=== PATIENT | female | born 2000 | race Caucasian/White ===

== ENCOUNTER 2022-02-25 22:47 | Emergency (ER) | payer OTHER ==
[2022-02-25 23:09] VITALS: BP 128/79; PULSE 98; TEMP 98.4; BMI 32.7
[2022-02-25] MEDS ORDERED: predniSONE 20 MG TABLET (UD) PO ONE (23:42)
[2022-02-25] MEDS ORDERED: diphenhydrAMINE HCL 25 MG CAPSULE (FP) PO ONE (23:42)
[2022-02-26] MEDS ORDERED: diphenhydrAMINE HCL 25 MG CAPSULE (FP) PO ONE (00:16)
[2022-02-26] MEDS ORDERED: predniSONE 20 MG TABLET (UD) ONE (00:16)
== END 2022-02-26 00:45 | disposition home or self-care (01) ==
LOC: JER 22:47
DX: L25.5 Unspecified contact dermatitis due to plants, except food (principal)
CPT/HCPCS: 99283-25

== ENCOUNTER 2023-01-02 11:41 | Emergency (ER) | payer OTHER ==
[2023-01-02 11:46] VITALS: BP 130/63; PULSE 73; RESP 18; TEMP 97.3; BMI 28.8
[2023-01-02] MEDS ORDERED: ONDANSETRON 4 MG/2 ML VIAL IVPUSH ONE (12:16)
[2023-01-02] MEDS ORDERED: FAMOTIDINE 20 MG/50 ML IVPB 20 MG/50 ML MG IVPB ONE ×2 (12:16→12:18)
[2023-01-02] MEDS ORDERED: LACTATED RINGERS SOLUTION 1000 ML INFUS.BAG IV ONE (12:16)
[2023-01-02] MEDS ORDERED: ONDANSETRON 4 MG/2 ML VIAL ONE (12:18)
[2023-01-02 12:32] LABS: BASO % 0.3 % (0-2.0); EOS % 0.1 % (0-4.5); HEMATOCRIT 38.8 % (32.4-45.2); HEMOGLOBIN 13.2 GM/dL (10.7-15.3); LYMPH % 13.8 % (8-40); MCH 28.7 pg (25.7-33.7); MCHC 34.1 g/dl (32.0-36.0); MEAN CELL VOLUME 84.3 fl (80-96); MEAN PLT VOLUME 8.6 fl (7.5-11.1); MONO % 4.1 % (3.8-10.2); NEUT % 81.7 % (42.8-82.8); PLATELET COUNT 287 10^3/uL (134-434); RDW 12.6 % (11.6-15.6); WHITE BLOOD COUNT 12.9 K/mm3 (4.0-10.0)
[2023-01-02 12:33] LABS: HCG,QUALITATIVE URINE Positive
[2023-01-02 12:37] LABS: EPI CELLS >36 /uL (0-25.1); HYALINE CASTS 2 /uL (0-3.1); PH,URINE 5.5 (5.0-8.0); URINE APPEARANCE CLOUDY; URINE BACTERIA 388 /uL (0-1359); URINE BILIRUBIN NEGATIVE (NEGATIVE); URINE COLOR YELLOW; URINE GLUCOSE (UA) NEGATIVE (NEGATIVE); URINE KETONE 4+ (NEGATIVE); URINE LEUK ESTERASE NEGATIVE (NEGATIVE); URINE NITRITE NEGATIVE (NEGATIVE); URINE PROTEIN 1+ (NEGATIVE); URINE RBC 20 /uL (0-23.9); URINE UROBILINOGEN 0.2 mg/dL (0.2-1.0); URINE WBC 55 /uL (0-25.8)
[2023-01-02 12:57] LABS: CALCIUM 9.3 mg/dL (8.5-10.1)
[2023-01-02 13:01] LABS: CREATININE 0.7 mg/dL (0.55-1.3)
[2023-01-02 13:03] LABS: BILIRUBIN,TOTAL 0.4 mg/dL (0.2-1); TOT PROT 7.9 g/dl (6.4-8.2)
== END 2023-01-02 14:12 | disposition home or self-care (01) ==
LOC: JER 11:41 → JERFT 11:41
PROC: 3E033GC Introduction of Other Therapeutic Substance into Peripheral Vein, Percutaneous Approach (ICD-10-PCS; principal; 2023-01-02)
PROC: 3E033GC Introduction of Other Therapeutic Substance into Peripheral Vein, Percutaneous Approach (ICD-10-PCS; 2023-01-02)
DX: O21.9 Vomiting of pregnancy, unspecified (principal); Z3A.01 Less than 8 weeks gestation of pregnancy
CPT/HCPCS: 36415; 76817-TC; 80053; 81003; 84702; 84703; 85025; 86850; 86900; 86901; 87086; 99284-25

== ENCOUNTER 2023-08-21 06:58 | Inpatient (IN) | payer OTHER ==
[2023-08-21 08:41] VITALS: BMI 38.5
[2023-08-21 09:16] LABS: INR 1.01 (0.83-1.09); PROTHROMBIN TIME (PATIENT) 11.7 SEC (9.7-13.0)
[2023-08-21 09:19] LABS: ACTIVATED PTT 23.9 SECONDS (25.2-36.5)
[2023-08-21 09:21] LABS: BASO % 0.3 % (0-2.0); EOS % 0.8 % (0-4.5); HEMATOCRIT 30.7 % (32.4-45.2); HEMOGLOBIN 10.1 GM/dL (10.7-15.3); LYMPH % 17.2 % (8-40); MCHC 32.7 g/dl (32.0-36.0); MEAN CELL VOLUME 82.6 fl (80-96); MEAN PLT VOLUME 7.8 fl (7.5-11.1); MONO % 8.3 % (3.8-10.2); NEUT % 73.4 % (42.8-82.8); PLATELET COUNT 263 10^3/uL (134-434); RBC 3.72 M/mm3 (3.60-5.2); RDW 14.5 % (11.6-15.6); WHITE BLOOD COUNT 12.5 K/mm3 (4.0-10.0)
[2023-08-21 09:52] LABS: POTASSIUM 3.8 mmol/L (3.5-5.1)
[2023-08-21 09:53] LABS: BLOOD UREA NITROGEN 8.8 mg/dL (7-18); CALCIUM 8.7 mg/dL (8.5-10.1)
[2023-08-21 09:57] LABS: CREATININE 0.4 mg/dL (0.55-1.3)
[2023-08-21] MEDS: ELECTROLYTE-148 SOLN 1,000 ML IV SCH ×2 (10:30→15:47)
[2023-08-21] MEDS ORDERED: DINOPROSTONE 10 MG VAGINAL SUPPOSITORY VG ONE (11:00)
[2023-08-21] MEDS ORDERED: PROMETHAZINE HCL 25 MG/1 ML VIAL IM ONE (11:10)
[2023-08-21] MEDS ORDERED: BUTORPHANOL TARTRATE 1 MG/ML VIAL IVPB ONE (11:10)
[2023-08-21] MEDS ORDERED: AMPICILLIN - 2 GM in SODIUM CHLORIDE 100 ML IVPB ONE ×2 (11:15→20:45)
[2023-08-21] MEDS: AMPICILLIN - 1 GM in SODIUM CHLORIDE 100 ML IVPB SCH (15:48)
[2023-08-21] MEDS ORDERED: AMPICILLIN SODIUM 2 GM VIAL ONE (20:21)
[2023-08-21] MEDS ORDERED: FENTANYL/BUPIVACAINE/NS/PF - PCEA - 50 ML DISP.SYRIN EP ONE (23:43)
[2023-08-22] MEDS: ELECTROLYTE-148 SOLN 1,000 ML IV SCH ×2 (00:15→04:30)
[2023-08-22] MEDS ORDERED: NALOXONE HCL 0.4 MG/ML VIAL IVPUSH PRN (00:23)
[2023-08-22] MEDS ORDERED: FENTANYL CITRATE/PF 50 MCG/ML VIAL ONE ×2 (00:31→18:15)
[2023-08-22] MEDS ORDERED: BUPIVACAINE HCL/PF 0.25% (2.5MG/ML) 10 ML VIAL ONE ×2 (00:31→18:15)
[2023-08-22] MEDS: FENTANYL/BUPIVACAINE/NS/PF - PCEA - 50 ML DISP.SYRIN EP SCH (00:50)
[2023-08-22] MEDS: AMPICILLIN - 1 GM in SODIUM CHLORIDE 100 ML IVPB SCH ×5 (01:00→17:30)
[2023-08-22] MEDS ORDERED: AMPICILLIN SODIUM 1 GM VIAL ONE ×5 (01:02→17:31)
[2023-08-22] MEDS ORDERED: OXYTOCIN 30 UNITS in 0.9% NS 30 UNIT/500 ML INFUS.BAG IVPB ONE (04:15)
[2023-08-22] MEDS: OXYTOCIN 30 UNITS in 0.9% NS 30 UNIT/500 ML INFUS.BAG IVPB SCH (04:20)
[2023-08-22] MEDS ORDERED: FENTANYL/BUPIVACAINE/NS/PF - PCEA - 50 ML DISP.SYRIN EP ONE ×4 (05:32→19:07)
[2023-08-22] MEDS ORDERED: LIDOCAINE HCL/EPINEPHRINE/PF 10 ML VIAL ONE (18:15)
[2023-08-22] MEDS ORDERED: WITCH HAZEL 50% (TUCKS) 40 PAD/JAR PAD TP PRN (19:58)
[2023-08-22] MEDS ORDERED: ACETAMINOPHEN 325 MG TABLET (FP) PO PRN (19:58)
[2023-08-22] MEDS ORDERED: METHYLERGONOVINE MALEATE 0.2 MG/1 ML AMP IM PRN (19:58)
[2023-08-22] MEDS ORDERED: CITRIC ACID/SODIUM CITRATE 30 ML UNIT-DOSE CUP PO ONE (20:00)
[2023-08-22] MEDS ORDERED: morphine SULFATE/PF 1 MG/2 ML (2cc Syringe - QUVA) ONE (20:15)
[2023-08-22 21:18] LABS: CORD BASE EXCESS -1.3 mmol/L (0-2); CORD HCO3 24.4 mmHg (20-29); CORD PCO2 43.9 mmHg (30-78); CORD pH 7.362 (7.14-7.44)
[2023-08-22] MEDS ORDERED: morphine SULFATE/PF 1 MG/2 ML (2cc Syringe - QUVA) EP ONE (21:18)
[2023-08-22] MEDS: FERROUS SO4 325 MG TABLET (FP) PO SCH (23:00)
[2023-08-22] MEDS: OXYTOCIN 20 UNITS in 0.9% NS 20 UNIT/1,000 ML INFUS.BAG IV SCH (23:21)
[2023-08-22] MEDS: IBUPROFEN 800 MG/8 ML IJ IVPB PRN (23:21)
[2023-08-23] MEDS: FENTANYL/BUPIVACAINE/NS/PF - PCEA - 50 ML DISP.SYRIN EP SCH (00:37)
[2023-08-23] MEDS: ELECTROLYTE-148 SOLN 1,000 ML IV SCH (03:50)
[2023-08-23] MEDS: OXYTOCIN 30 UNITS in 0.9% NS 30 UNIT/500 ML INFUS.BAG IVPB SCH (03:52)
[2023-08-23] MEDS ORDERED: oxyCODONE HCL 5 MG TABLET PO PRN (07:59)
[2023-08-23 08:02] LABS: BASO % 0.1 % (0-2.0); EOS % 0.6 % (0-4.5); HEMATOCRIT 26.2 % (32.4-45.2); HEMOGLOBIN 8.5 GM/dL (10.7-15.3); LYMPH % 12.1 % (8-40); MCH 26.9 pg (25.7-33.7); MCHC 32.3 g/dl (32.0-36.0); MEAN CELL VOLUME 83.2 fl (80-96); MEAN PLT VOLUME 7.7 fl (7.5-11.1); MONO % 8.2 % (3.8-10.2); PLATELET COUNT 208 10^3/uL (134-434); RBC 3.15 M/mm3 (3.60-5.2); RDW 14.4 % (11.6-15.6); WHITE BLOOD COUNT 13.3 K/mm3 (4.0-10.0)
[2023-08-23] MEDS: OXYTOCIN 20 UNITS in 0.9% NS 20 UNIT/1,000 ML INFUS.BAG IV SCH (08:38)
[2023-08-23] MEDS: DOCUSATE SODIUM 100 MG CAPSULE (FP) PO SCH ×3 (10:00→21:29)
[2023-08-23] MEDS ORDERED: FERROUS SO4 325 MG TABLET (FP) PO SCH (10:00)
[2023-08-23] MEDS: FERROUS SO4 325 MG TABLET (FP) PO SCH ×2 (10:16→21:30)
[2023-08-23] MEDS: PRENATAL VITAMINS W/ FOLIC ACID TABLET (FP) PO SCH (10:16)
[2023-08-23] MEDS: IBUPROFEN 800 MG/8 ML IJ IVPB PRN (10:17)
[2023-08-23] MEDS: IBUPROFEN 600 MG TABLET (FP) PO PRN (19:49)
[2023-08-23] MEDS ORDERED: BISACODYL 10 MG SUPP.RECT RC PRN (19:59)
[2023-08-23] MEDS ORDERED: HYDROCORTISONE 1% TOPICAL CREAM 30 GM TUBE TP PRN (21:23)
[2023-08-24] MEDS: DOCUSATE SODIUM 100 MG CAPSULE (FP) PO SCH ×3 (06:19→22:03)
[2023-08-24] MEDS: FERROUS SO4 325 MG TABLET (FP) PO SCH ×2 (10:56→22:03)
[2023-08-24] MEDS: PRENATAL VITAMINS W/ FOLIC ACID TABLET (FP) PO SCH (10:56)
[2023-08-24 12:02] LABS: BASO % 0.1 % (0-2.0); EOS % 1.2 % (0-4.5); HEMOGLOBIN 8.9 GM/dL (10.7-15.3); MCH 26.9 pg (25.7-33.7); MCHC 32.9 g/dl (32.0-36.0); MEAN CELL VOLUME 81.6 fl (80-96); MEAN PLT VOLUME 7.7 fl (7.5-11.1); MONO % 6.3 % (3.8-10.2); NEUT % 81.4 % (42.8-82.8); PLATELET COUNT 238 10^3/uL (134-434); RBC 3.31 M/mm3 (3.60-5.2); RDW 14.7 % (11.6-15.6)
[2023-08-24] MEDS ORDERED: AMOX TR/POT CLAV 500MG/125MG TABLETS (FP) PO SCH (13:30)
[2023-08-24] MEDS: IBUPROFEN 600 MG TABLET (FP) PO PRN (13:42)
[2023-08-24 16:19] VITALS: RESP 18
[2023-08-24] MEDS: oxyCODONE HCL 5 MG TABLET PO PRN (16:19)
[2023-08-24] MEDS: AMPICILLIN - 1 GM in SODIUM CHLORIDE 100 ML IVPB SCH ×3 (20:42→20:48)
[2023-08-24] MEDS: OXYTOCIN 20 UNITS in 0.9% NS 20 UNIT/1,000 ML INFUS.BAG IV SCH (20:43)
[2023-08-24] MEDS: AMOX TR/POT CLAV 500MG/125MG TABLETS (FP) PO SCH (22:03)
[2023-08-24] MEDS: SIMETHICONE 80 MG TAB.CHEW (FP) PO PRN (22:03)
[2023-08-25] MEDS: oxyCODONE HCL 5 MG TABLET PO PRN (00:06)
[2023-08-25] MEDS: DOCUSATE SODIUM 100 MG CAPSULE (FP) PO SCH ×2 (06:02→13:53)
[2023-08-25 09:25] LABS: BASO % 0.1 % (0-2.0); EOS % 1.8 % (0-4.5); HEMATOCRIT 26.6 % (32.4-45.2); HEMOGLOBIN 8.5 GM/dL (10.7-15.3); LYMPH % 18.6 % (8-40); MCH 26.7 pg (25.7-33.7); MCHC 31.9 g/dl (32.0-36.0); MEAN CELL VOLUME 83.6 fl (80-96); MONO % 6.6 % (3.8-10.2); NEUT % 72.9 % (42.8-82.8); PLATELET COUNT 249 10^3/uL (134-434); RBC 3.18 M/mm3 (3.60-5.2); RDW 14.9 % (11.6-15.6); WHITE BLOOD COUNT 10.2 K/mm3 (4.0-10.0)
[2023-08-25] MEDS: PRENATAL VITAMINS W/ FOLIC ACID TABLET (FP) PO SCH (09:56)
[2023-08-25] MEDS: IBUPROFEN 600 MG TABLET (FP) PO PRN ×2 (09:56→13:53)
[2023-08-25] MEDS: FERROUS SO4 325 MG TABLET (FP) PO SCH (09:57)
[2023-08-25] MEDS: AMOX TR/POT CLAV 500MG/125MG TABLETS (FP) PO SCH (09:57)
[2023-08-25] MEDS: SIMETHICONE 80 MG TAB.CHEW (FP) PO PRN ×2 (09:57→13:53)
[2023-08-25 10:35] VITALS: BP 112/66; PULSE 94; TEMP 97.8
== END 2023-08-25 16:15 | disposition home or self-care (01) | DRG 540 ==
LOC: JLDR 06:58 → J3W 08-22 23:02
PROVIDERS: ADMIT Obstetrics & Gynecology; ATTEND Obstetrics & Gynecology
PROC: 3E0P7VZ Introduction of Hormone into Female Reproductive, Via Natural or Artificial Opening (ICD-10-PCS; principal; 2023-08-21)
PROC: 10D00Z1 Extraction of Products of Conception, Low, Open Approach (ICD-10-PCS; 2023-08-22)
DX: O62.1 Secondary uterine inertia (principal); O99.824 Streptococcus B carrier state complicating childbirth; O90.81 Anemia of the puerperium; Z3A.39 39 weeks gestation of pregnancy; Z37.0 Single live birth
CPT/HCPCS: 36415; 36600; 80048; 82803; 85025; 85610; 85730; 86780; 86850; 86900; 86901; 88307-TC; 94010

== ENCOUNTER 2024-01-28 22:59 | Emergency (ER) | payer OTHER ==
[2024-01-28 23:12] VITALS: BP 136/91; PULSE 69; RESP 18; TEMP 97.3; BMI 30.2
[2024-01-28] MEDS: ACETAMINOPHEN 1000 MG/100 ML BAG IVPB ONE (23:37)
[2024-01-28] MEDS: SODIUM CHLORIDE 0.9% 500 ML INFUS.BAG IV ONE (23:37)
[2024-01-28] MEDS: FAMOTIDINE 20 MG/50 ML IVPB 20 MG/50 ML MG IVPB ONE (23:37)
[2024-01-28] MEDS: ONDANSETRON 4 MG/2 ML VIAL IVPUSH ONE (23:37)
[2024-01-28] MEDS ORDERED: FAMOTIDINE 20 MG/50 ML IVPB 20 MG/50 ML MG IVPB ONE (23:53)
[2024-01-28] MEDS ORDERED: ACETAMINOPHEN INJECTION 100 ML IVPB ONE (23:53)
[2024-01-28] MEDS ORDERED: ONDANSETRON 4 MG/2 ML VIAL ONE (23:53)
[2024-01-29 00:22] LABS: BASO % 0.3 % (0-2.0); EOS % 0.5 % (0-4.5); HEMATOCRIT 41.1 % (32.4-45.2); HEMOGLOBIN 13.6 GM/dL (10.7-15.3); LYMPH % 13.4 % (8-40); MCH 27.8 pg (25.7-33.7); MCHC 33.2 g/dl (32.0-36.0); MEAN CELL VOLUME 83.9 fl (80-96); MEAN PLT VOLUME 8.6 fl (7.5-11.1); MONO % 2.8 % (3.8-10.2); PLATELET COUNT 338 10^3/uL (134-434); RBC 4.89 M/mm3 (3.60-5.2); RDW 13.6 % (11.6-15.6); WHITE BLOOD COUNT 12.1 K/mm3 (4.0-10.0)
[2024-01-29 00:39] LABS: POTASSIUM 3.6 mmol/L (3.5-5.1)
[2024-01-29 00:42] LABS: BLOOD UREA NITROGEN 11.2 mg/dL (7-18); CALCIUM 9.5 mg/dL (8.5-10.1); MAGNESIUM 1.9 mg/dL (1.8-2.4)
[2024-01-29 00:45] LABS: CREATININE 0.8 mg/dL (0.55-1.3)
[2024-01-29 00:47] LABS: BILIRUBIN,TOTAL 0.3 mg/dL (0.2-1); TOT PROT 8.1 g/dl (6.4-8.2)
[2024-01-29] MEDS: HYDROCORTISONE VALERATE 0.2% CREAM 15 G TUBE TP ONE (01:47)
[2024-01-29] MEDS: HYDROCORTISONE 1% TOPICAL OINT 30 GM TUBE TP ONE (02:09)
== END 2024-01-29 04:17 | disposition home or self-care (01) ==
LOC: JER 22:59
PROC: 3E033GC Introduction of Other Therapeutic Substance into Peripheral Vein, Percutaneous Approach (ICD-10-PCS; principal; 2024-01-28)
PROC: 3E033NZ Introduction of Analgesics, Hypnotics, Sedatives into Peripheral Vein, Percutaneous Approach (ICD-10-PCS; 2024-01-28)
PROC: 3E033GC Introduction of Other Therapeutic Substance into Peripheral Vein, Percutaneous Approach (ICD-10-PCS; 2024-01-28)
DX: R10.13 Epigastric pain (principal); R11.2 Nausea with vomiting, unspecified; L30.9 Dermatitis, unspecified; K80.20 Calculus of gallbladder without cholecystitis without obstruction
CPT/HCPCS: 36415; 71045-TC-FY; 76705-TC; 80053; 83690; 83735; 84100; 84703; 85025; 93005; 93010; 99285-25; J0131

== ENCOUNTER 2024-02-11 12:56 | Emergency (ER) | payer OTHER ==
[2024-02-11 13:02] VITALS: RESP 18; BMI 30.2
[2024-02-11] MEDS ORDERED: ONDANSETRON 4 MG/2 ML VIAL ONE ×2 (13:25→19:36)
[2024-02-11] MEDS ORDERED: morphine SULFATE 4 MG/ML VIAL ONE ×2 (13:25→19:36)
[2024-02-11] MEDS: morphine CARPU-JECT 2 MG/1 ML DISP.SYRIN IVPUSH ONE ×2 (13:35→17:08)
[2024-02-11] MEDS: ONDANSETRON 4 MG/2 ML VIAL IVPUSH ONE ×2 (13:35→19:46)
[2024-02-11] MEDS: SODIUM CHLORIDE 0.9% 500 ML INFUS.BAG IV ONE ×2 (13:35→16:21)
[2024-02-11 13:51] LABS: HEMATOCRIT 47.3 % (32.4-45.2); HEMOGLOBIN 15.6 GM/dL (10.7-15.3); MCH 28.2 pg (25.7-33.7); MEAN CELL VOLUME 85.6 fl (80-96); MEAN PLT VOLUME 9.9 fl (7.5-11.1); PLATELET COUNT 333 10^3/uL (134-434); RBC 5.53 M/mm3 (3.60-5.2); RDW 14.1 % (11.6-15.6); WHITE BLOOD COUNT 15.8 K/mm3 (4.0-10.0)
[2024-02-11 13:55] LABS: EPI CELLS >36 /uL (0-25.1); HYALINE CASTS 2 /uL (0-3.1); PH,URINE 5.5 (5.0-8.0); URINE APPEARANCE TURBID; URINE BACTERIA 1424 /uL (0-1359); URINE BILIRUBIN 3+ (NEGATIVE); URINE COLOR DK YELLOW; URINE GLUCOSE (UA) NEGATIVE (NEGATIVE); URINE KETONE 4+ (NEGATIVE); URINE LEUK ESTERASE 2+ (NEGATIVE); URINE NITRITE POSITIVE (NEGATIVE); URINE PROTEIN 2+ (NEGATIVE); URINE WBC 81 /uL (0-25.8)
[2024-02-11 13:58] LABS: HCG,QUALITATIVE URINE NEGATIVE; URINE RBC 16.3 /uL (0-23.9)
[2024-02-11 14:06] LABS: CHLORIDE 101 mmol/L (98-107)
[2024-02-11 14:08] LABS: ALBUMIN 4.2 g/dl (3.4-5.0); BLOOD UREA NITROGEN 13.1 mg/dL (7-18); CALCIUM 10.2 mg/dL (8.5-10.1); CO2 27 mmol/L (21-32); GLUCOSE,RANDOM 169 mg/dL (74-106)
[2024-02-11 14:11] LABS: SGOT/AST 839 U/L (15-37)
[2024-02-11 14:14] LABS: TOT PROT 8.2 g/dl (6.4-8.2)
[2024-02-11 14:16] LABS: ANISOCYTOSIS 0; HELMET CELLS 0; HOWELL-JOLLY BODIES 0; MACROCYTOSIS 0; OVALOCYTE 0; ROULEAU 0; SICKELED CELLS 0; TARGET CELLS 0; TEAR DROP CELLS 0; TOXIC GRANULATION 0
[2024-02-11] MEDS ORDERED: PIPERACILLIN/TAZOB 4.5 GM 4.5 GM/100 ML BAG IVPB ONE (14:19)
[2024-02-11 14:20] LABS: ALK PHOS 424 U/L (45-117); ANION GAP 8 mmol/L (4-13); BILIRUBIN,TOTAL 2.5 mg/dL (0.2-1); CREATININE 1.2 mg/dL (0.55-1.3); SGPT/ALT 1172 U/L (13-61); SODIUM 136 mmol/L (136-145)
[2024-02-11] MEDS: PIPERACILLIN/TAZOB 4.5 GM 4.5 GM in DEXTROSE 5%-WATER 100 ML IVPB ONE (14:58)
[2024-02-11] MEDS: morphine CARPU-JECT 4 MG/1 ML DISP.SYRIN IVPUSH ONE (19:46)
[2024-02-12 00:52] VITALS: BP 109/68; TEMP 98.5
[2024-02-12 01:13] VITALS: PULSE 74
== END 2024-02-12 01:12 | disposition short-term general hospital (02) ==
LOC: JER 12:56
PROC: 3E03329 Introduction of Other Anti-infective into Peripheral Vein, Percutaneous Approach (ICD-10-PCS; principal; 2024-02-11)
PROC: 3E030GC Introduction of Other Therapeutic Substance into Peripheral Vein, Open Approach (ICD-10-PCS; 2024-02-11)
PROC: 3E030GC Introduction of Other Therapeutic Substance into Peripheral Vein, Open Approach (ICD-10-PCS; 2024-02-11)
PROC: 3E030GC Introduction of Other Therapeutic Substance into Peripheral Vein, Open Approach (ICD-10-PCS; 2024-02-11)
PROC: 3E030GC Introduction of Other Therapeutic Substance into Peripheral Vein, Open Approach (ICD-10-PCS; 2024-02-11)
PROC: 3E030GC Introduction of Other Therapeutic Substance into Peripheral Vein, Open Approach (ICD-10-PCS; 2024-02-11)
DX: K85.10 Biliary acute pancreatitis without necrosis or infection (principal); R11.2 Nausea with vomiting, unspecified; R53.81 Other malaise; R10.10 Upper abdominal pain, unspecified; R10.30 Lower abdominal pain, unspecified; Z20.822 Contact with and (suspected) exposure to COVID-19
CPT/HCPCS: 36415; 74177-TC; 76705-TC; 80053; 81003; 83690; 84703; 85025; 87086; 87635; 99285-25